=== PATIENT | female | born 1995 | race Caucasian/White ===

== ENCOUNTER 2020-03-26 10:14 | Emergency (ER) | payer OTHER ==
--- NOTE | 2020-03-26 10:19 | NUR ---
Called patient; no answer.
--- NOTE | 2020-03-26 10:24 | NUR ---
Called patient the second time; no response.
--- NOTE | 2020-03-26 10:28 | NUR ---
Called patient; no response. Notified ERMD.
--- NOTE | 2020-03-26 10:33 | NUR ---
PATIENT LEFT WITHOUT BEING SEEN BY DR. KLEIN. NO FURTHER CARE PROVIDED FOR PATIENT. Addendum: 03/26/20 at 1034 by SRINIVAS Patient LWBS and prior to triage
== END 2020-03-26 10:19 | disposition left against medical advice (07) ==
LOC: MED 10:14
DX: Z53.21 Procedure and treatment not carried out due to patient leaving prior to being seen by health care provider (principal)

== ENCOUNTER 2023-05-08 00:39 | Emergency (ER) | payer OTHER ==
[~2023-05-08] VITALS: Ht 152.4 cm; Wt 75.3 kg
[2023-05-08 01:16] VITALS: BP 116/77; PULSE 70; RESP 16; TEMP 98.4; O2SAT 98
[2023-05-08 02:15] LABS: FLU A ANTIGEN negative (NEGATIVE); FLU B ANTIGEN negative (NEGATIVE)
[2023-05-08] MEDS ORDERED: KETOROLAC 60 MG/2 ML VIAL IM ONE (02:40)
[2023-05-08] MEDS ORDERED: ONDANSETRON 4 MG ODT PO ONE (02:40)
[2023-05-08] MEDS ORDERED: ONDA8TAB87 PO (02:43)
[2023-05-08] MEDS ORDERED: IBUP-2213 PO (02:43)
[2023-05-08 03:26] VITALS: BP 116/77; PULSE 70; RESP 16; TEMP 98.4; O2SAT 98
== END 2023-05-08 03:26 | disposition home or self-care (01) ==
LOC: MED 00:39
DX: R10.13 Epigastric pain (principal); Z20.822 Contact with and (suspected) exposure to COVID-19; R11.2 Nausea with vomiting, unspecified; R19.7 Diarrhea, unspecified; Z79.899 Other long term (current) drug therapy
CPT/HCPCS: 81002; 81025; 87426; 87804; 96372; 99283; J1885; Q0162